=== PATIENT | female | born 1960 | race Caucasian/White ===

== ENCOUNTER 2022-12-10 08:10 | Emergency (ER) | payer OTHER ==
[~2022-12-10] VITALS: Ht 165.1 cm; Wt 65.8 kg
[2022-12-10 08:40] VITALS: BP 184/98
[2022-12-10] MEDS ORDERED: HYDR1TAB94 PO (09:13)
== END 2022-12-10 10:33 | disposition home or self-care (01) ==
LOC: ER 08:10
DX: S52.571A Other intraarticular fracture of lower end of right radius, initial encounter for closed fracture (principal); S52.611A Displaced fracture of right ulna styloid process, initial encounter for closed fracture; V86.55XA Driver of 3- or 4- wheeled all-terrain vehicle (ATV) injured in nontraffic accident, initial encounter
CPT/HCPCS: 29125; 73110; 99283-25; A9270